=== PATIENT | female | born 1975 | race Caucasian/White ===

== ENCOUNTER 2017-06-02 18:12 | Inpatient (IN) | payer OTHER, MEDICARE ==
[~2017-06-02] VITALS: Ht 177.8 cm; Wt 141.9 kg
[2017-06-02 18:15] VITALS: BP 148/92; PULSE 94; RESP 24; TEMP 98.8; O2SAT 93
[2017-06-02] MEDS: RESP: ALBUTEROL 2.5 MG/IPRATROPIUM 0.5 MG NEB (SCH) INH ×2 (18:42→18:43)
--- NOTE | 2017-06-02 18:44 | PD ---
HPI Chief Complaint: Respiratory Symptoms Time Seen by Provider: 18:30 Travel History International Travel<30 days: No Contact w/Intl Traveler<30days: No Traveled to known affect area: No History of Present Illness HPI Patient is a 41-year-old female with history of COPD who presents to emergency room with complaints of COPD exacerbation. Reports that she was sitting at home with a family member who is a smoker, reports that all of a sudden she felt increasingly short of breath. Patient reports that she put on 2 L nasal cannula oxygen she has a when needed, reports that this did not help with her symptoms. When EMS arrived on scene, patient was hypoxic with a pulse of 79% on 2 L nasal cannula. Patient was not moving any air at that time, she was given 125 mg of Solu-Medrol as well as 3 nebulizer treatments with minimal relief of symptoms. Patient reports that prior to this, she felt well, had no fever or chills or cough or congestion. She does follow-up with a accounts payables clerk , Dr. Landrum. Reports no chest pain at this time, denies any sick contacts. PFSH Past Medical History Asthma: Yes COPD: Yes Diabetes: Yes Hypertension: Yes ?: Not LMP: may 15 Past Surgical History Surgical History: Unable to Obtain Social History Alcohol Use: No Tobacco Use: No Substance Use: No Allergies-Medications (Allergen,Severity, Reaction): Coded Allergies: Penicillins (Verified Allergy, Severe, 06/02/17) droperidol (Verified Allergy, Severe, Somnolence, 06/02/17) hydrocodone (Verified Allergy, Intermediate, Itching, 06/02/17) Reported Meds & Prescriptions Reported Meds & Active Scripts Active Reported Triamterene-Hydrochlorothiazide 37.5-25 Mg Cap 1 Cap PO DAILY Theophylline ER 12 HR (Theophylline) 300 Mg Tab 300 Mg PO HS Theophylline ER 12 HR (Theophylline) 300 Mg Tab 600 Mg PO DAILY Finasteride 5 Mg Tab 5 Mg PO DAILY Do not crush. Omeprazole 40 Mg Cap 40 Mg PO DAILY Xanax (Alprazolam) 1 Mg Tab 1 Mg PO Q8H PRN Oxycontin (Oxycodone HCl) 10 Mg Tab 10 Mg PO Q8HR Flexeril (Cyclobenzaprine HCl) 7.5 Mg Tab 7.5 Mg PO TID PRN Flexeril (Cyclobenzaprine HCl) 7.5 Mg Tab 7.5 Mg PO TID Cymbalta DR (Duloxetine HCl) 60 Mg Capdr 60 Mg PO BID Bupropion HCl 75 Mg Tab 75 Mg PO BID Carvedilol 6.25 Mg Tab 6.25 Mg PO BID Losartan (Losartan Potassium) 25 Mg Tab 25 Mg PO DAILY Furosemide 20 Mg Tab 20 Mg PO BID Review of Systems General / Constitutional: No: Fever Eyes: No: Visual changes HENT: No: Headaches Cardiovascular: No: Chest Pain or Discomfort, Palpitations, Irregular Rhythm Respiratory: Positive: Shortness of Breath, Wheezing, No: Cough Gastrointestinal: No: Abdominal Pain Genitourinary: No: Dysuria Musculoskeletal: No: Pain Skin: No Rash Neurologic: No: Weakness Psychiatric: No: Depression Endocrine: No: Polydipsia Hematologic/Lymphatic: No: Easy Bruising Physical Exam Narrative GENERAL: Moderate distress SKIN: Focused skin assessment warm/dry. HEAD: Atraumatic. Normocephalic. EYES: Pupils equal and round. No scleral icterus. No injection or drainage. ENT: No nasal bleeding or discharge. Mucous membranes pink and moist. NECK: Trachea midline. No JVD. CARDIOVASCULAR: Regular rate and rhythm. No murmur appreciated. RESPIRATORY: Positive accessory muscle use. Patient with diffuse wheezing on exam GASTROINTESTINAL: Abdomen soft, non-tender, nondistended. Hepatic and splenic margins not palpable. MUSCULOSKELETAL: No obvious deformities. No clubbing. No cyanosis. No edema. NEUROLOGICAL: Awake and alert. No obvious cranial nerve deficits. Motor grossly within normal limits. Normal speech. PSYCHIATRIC: anxious mood and affect; insight and judgment normal. Data Data Last Documented VS Vital Signs Date Time Temp Pulse Resp B/P (MAP) Pulse Ox O2 Delivery O2 Flow Rate FiO2 06/02/17 18:15 98.8 94 24 148/92 (110) 93 Orders Orders Complete Blood Count With Diff (06/02/17 18:30) Comprehensive Metabolic Panel (06/02/17 18:30) B-Type Natriuretic Peptide (06/02/17 18:30) Act Partial Throm Time (Ptt) (06/02/17 18:30) Prothrombin Time / Inr (Pt) (06/02/17 18:30) Magnesium (Mg) (06/02/17 18:30) Arterial Blood Gas (Abg) (06/02/17 18:30) Blood Culture (06/02/17 18:30) Iv Access Insert/Monitor (06/02/17 18:30) Electrocardiogram (06/02/17 18:30) Ecg Monitoring (06/02/17 18:30) Oximetry (06/02/17 18:30) Oxygen Administration (06/02/17 18:30) Chest, Single Ap (06/02/17 18:30) Ed Urine Pregnancytest Poc (06/02/17 18:30) Magnesium Sulfate 1 Gm Premix (Magnesium (06/02/17 18:45) Albuterol-Ipratropium Neb (Duoneb Neb) (06/02/17 18:45) Influenzae A/B Antigen (06/02/17 18:42) Ketorolac Inj (Toradol Inj) (06/02/17 19:00) Sodium Chlor 0.9% 1000 Ml Inj (Ns 1000 M (06/02/17 19:00) Levofloxacin 750 Mg Premix Inj (Levaquin (06/02/17 19:15) Labs Laboratory Tests Test 06/02/17 18:30 06/02/17 18:46 06/02/17 18:50 White Blood Count 9.0 TH/MM3 Red Blood Count 4.95 MIL/MM3 Hemoglobin 12.8 GM/DL Hematocrit 38.8 % Mean Corpuscular Volume 78.4 FL Mean Corpuscular Hemoglobin 25.8 PG Mean Corpuscular Hemoglobin Concent 32.9 % Red Cell Distribution Width 19.3 % Platelet Count 242 TH/MM3 Mean Platelet Volume 9.7 FL Neutrophils (%) (Auto) 65.2 % Lymphocytes (%) (Auto) 24.4 % Monocytes (%) (Auto) 8.6 % Eosinophils (%) (Auto) 1.0 % Basophils (%) (Auto) 0.8 % Neutrophils # (Auto) 5.8 TH/MM3 Lymphocytes # (Auto) 2.2 TH/MM3 Monocytes # (Auto) 0.8 TH/MM3 Eosinophils # (Auto) 0.1 TH/MM3 Basophils # (Auto) 0.1 TH/MM3 CBC Comment DIFF FINAL Differential Comment Prothrombin Time 10.2 SEC Prothromb Time International Ratio 1.0 RATIO Activated Partial Thromboplast Time 25.2 SEC Blood Urea Nitrogen 11 MG/DL Creatinine 0.58 MG/DL Random Glucose 107 MG/DL Total Protein 7.5 GM/DL Albumin 3.4 GM/DL Calcium Level 8.8 MG/DL Magnesium Level 1.9 MG/DL Alkaline Phosphatase 121 U/L Aspartate Amino Transf (AST/SGOT) 18 U/L Alanine Aminotransferase (ALT/SGPT) 17 U/L Total Bilirubin 0.4 MG/DL Sodium Level 137 MEQ/L Potassium Level 3.6 MEQ/L Chloride Level 99 MEQ/L Carbon Dioxide Level 32.8 MEQ/L Anion Gap 5 MEQ/L Estimat Glomerular Filtration Rate 113 ML/MIN B-Type Natriuretic Peptide 28 PG/ML Blood Gas Puncture Site RT RADIAL Blood Gas Patient Temperature 98.6 Blood Gas HCO3 31 mmol/L Blood Gas Base Excess 6.5 mmol/L Blood Gas Oxygen Saturation 86 % Arterial Blood pH 7.40 Arterial Blood Partial Pressure CO2 52 mmHG Arterial Blood Partial Pressure O2 60 mmHG Arterial Blood Oxygen Content 16.2 Vol % Arterial Blood Carboxyhemoglobin 0.1 % Arterial Blood Methemoglobin 0.7 % Blood Gas Hemoglobin 13.4 G/DL Oxygen Delivery Device ROOM AIR Blood Gas Inspired Oxygen 21 % [facility] Medical Decision Making Medical Screen Exam Complete: Yes Emergency Medical Condition: Yes Medical Record Reviewed: Yes Interpretation(s) EKG at 1845: NSR at 96bpm, qt/qtc: 370/424, no acute st or t wave changes Vital Signs Date Time Temp Pulse Resp B/P (MAP) Pulse Ox O2 Delivery O2 Flow Rate FiO2 06/02/17 18:15 98.8 94 24 148/92 (110) 93 Differential Diagnosis COPD exacerbation, pneumonia, pneumothorax Narrative Course 41-year-old female who presents to emergency room with complaints of COPD exacerbation, COPD exacerbation began 30 minutes prior to arrival to the emergency room. Patient was given 125 mg of IV Solu-Medrol as well as 3 nebulizer treatments by EMS. Patient continues to have tight breath sounds on evaluation. Patient was initially hypoxic upon initial evaluation by EMS - she had a pulse ox of 79% on 2 L. patient currently with a pulse ox of 93% on room air, patient was placed on oxygen upon arrival to emergency room. Vital Signs Date Time Temp Pulse Resp B/P (MAP) Pulse Ox O2 Delivery O2 Flow Rate FiO2 06/02/17 18:15 98.8 94 24 148/92 (110) 93 During the course of the patients emergency department visit, the patients history, examination, and differential diagnosis were reviewed with the patient. The patient was placed on a job cost estimator with oximetry and frequent blood pressure monitoring. The patient had an IV access obtained and blood work sent for analysis. The patient was initially provided IV fluids, IV magnesium The patients laboratory studies were reviewed and remarkable for CBC & BMP Diagram 06/02/17 18:30 06/02/17 18:46 Total Protein 7.5, Albumin 3.4, Calcium Level 8.8, Magnesium Level 1.9, Alkaline Phosphatase 121 H, Aspartate Amino Transf (AST/SGOT) 18, Alanine Aminotransferase (ALT/SGPT) 17, Total Bilirubin 0.4 Radiology studies were reviewed and remarkable for Last Impressions Chest X-Ray 06/02/17 1830 Signed Impressions: Service Date/Time: Wednesday, June 02, 2017 18:36 - CONCLUSION: 1. No acute cardiopulmonary disease. Sidney Zarate MD Microbiology Date/Time Source Procedure Growth Status 06/02/17 18:38 Blood Peripheral Aerobic Blood Culture Pending Received 06/02/17 18:38 Blood Peripheral Anaerobic Blood Culture Pending Received 06/02/17 18:30 Blood Peripheral Aerobic Blood Culture Pending Received 06/02/17 18:30 Blood Peripheral Anaerobic Blood Culture Pending Received 06/02/17 19:08 Nasal Aspirate Influenza Types A,B Antigen (CHETNA) - Final NEGATIVE FOR FLU A AND B ANTIGEN.... Complete Patient reevaluated, patient moving air much better after magnesium and nebulizer treatments administered. Patient with the PaO2 of 60% on room air, oxygen saturation is 86%, patient is hypoxic. Plan to admit to the hospital for IV steroids as well as neb treatments. Patient has been pancultured, she has been given dose of Levaquin for COPD exacerbation. Critical Care Narrative Aggregate critical care time was 30 minutes. Time to perform other separately billable procedures was not included in the critical care time. My time did not include minutes spent treating any other patients simultaneously or on activities that did not directly contribute to the patient's treatment. The services I provided to this patient were to treat and/or prevent clinically significant deterioration that could result in: , decompensation, deterioration I provided critical care services requiring my management, as noted below: Chart data review, documentation time, medication orders and management, vital sign assessments/reviewing monitor data, ordering and reviewing lab tests, ordering and interpreting/reviewing x-rays and diagnostic studies, care of the patient and discussion of the patient with the admitting physicians. Diagnosis Primary Impression: Hypoxia Additional Impression: COPD with exacerbation Admitting Information Admitting Physician Requests: Admit Bekah Verdugo DO Jun 02, 2017 18:44
[2017-06-02 18:53] LABS: AUTOMATED NEUTROPHIL # 5.8 TH/MM3 (1.8-7.7); BASOPHIL # 0.1 TH/MM3 (0-0.2); BASOPHIL % 0.8 % (0.0-2.0); EOSINOPHIL # 0.1 TH/MM3 (0-0.4); HEMATOCRIT 38.8 % (35.0-46.0); HEMOGLOBIN 12.8 GM/DL (11.6-15.3); LYMPH % 24.4 % (9.0-44.0); LYMPHOCYTE # 2.2 TH/MM3 (1.0-4.8); MEAN CELL VOLUME 78.4 FL (80.0-100.0); MEAN CORPUSCULAR HEMOGLOBIN 25.8 PG (27.0-34.0); MEAN CORPUSCULAR HGB CONC 32.9 % (32.0-36.0); MEAN PLATELET VOLUME 9.7 FL (7.0-11.0); MONO % 8.6 % (0.0-8.0); MONOCYTE # 0.8 TH/MM3 (0-0.9); NEUT % 65.2 % (16.0-70.0); PLATELET COUNT 242 TH/MM3 (150-450); RED BLOOD COUNT 4.95 MIL/MM3 (4.00-5.30); RED CELL DISTRIBUTION WIDTH 19.3 % (11.6-17.2)
[2017-06-02] MEDS ORDERED: SODIUM CHLOR 0.9% 1000 ML INJ 1,000 ML IV ONE (19:00)
[2017-06-02] MEDS ORDERED: KETOROLAC TROMETHAMINE 30 MG/ML (IVP) VIAL IV PUSH ONE (19:00)
--- NOTE | 2017-06-02 19:02 | RADRPT ---
EXAM DATE/TIME: 06/02/2017 18:36 [facility] COMPARISON: No previous studies available for comparison. INDICATIONS : Short of breath. MEDICAL HISTORY : Asthma. SURGICAL HISTORY : None. ENCOUNTER: Initial ACUITY: 1 day PAIN SCORE: 4/10 LOCATION: Bilateral chest FINDINGS: A single view of the chest demonstrates the lungs to be symmetrically aerated without evidence of mas s, infiltrate or effusion. The cardiomediastinal contours are unremarkable. Osseous structures are intact. CONCLUSION: 1. No acute cardiopulmonary disease. Sidney Zarate MD on June 02, 2017 at 19:01 Board Certified Radiologist. This report was verified electronically.
[2017-06-02 19:06] LABS: CHLORIDE 99 MEQ/L (98-107); SODIUM (NA) 137 MEQ/L (136-145)
[2017-06-02] MEDS ORDERED: OMEP40CA2 PO (19:08)
[2017-06-02] MEDS ORDERED: FURO20TA PO (19:08)
[2017-06-02] MEDS ORDERED: BUPR75TA PO (19:08)
[2017-06-02] MEDS ORDERED: CYCL7.5T33 PO (19:08)
[2017-06-02] MEDS ORDERED: XANA1TAB2 PO (19:08)
[2017-06-02] MEDS ORDERED: CYMB60CA PO (19:08)
[2017-06-02] MEDS ORDERED: THEO300T12 PO ×2 (19:08)
[2017-06-02] MEDS ORDERED: LOSA25TA PO (19:08)
[2017-06-02] MEDS ORDERED: FINA5TAB2 PO (19:08)
[2017-06-02] MEDS ORDERED: OXYC-103 PO (19:08)
[2017-06-02] MEDS ORDERED: CARV6.252 PO (19:08)
[2017-06-02 19:09] LABS: CALCIUM 8.8 MG/DL (8.5-10.1)
[2017-06-02 19:10] LABS: ALBUMIN 3.4 GM/DL (3.4-5.0); BICARBONATE 32.8 MEQ/L (21.0-32.0); BLOOD UREA NITROGEN 11 MG/DL (7-18); GLUCOSE,RANDOM 107 MG/DL (74-106); MAGNESIUM 1.9 MG/DL (1.5-2.5)
[2017-06-02 19:11] LABS: PROTHROMBIN TIME - PATIENT 10.2 SEC (9.8-11.6)
[2017-06-02] MEDS ORDERED: TRIA37.53 PO (19:11)
[2017-06-02 19:13] LABS: ALT (GPT) 17 U/L (10-53); AST (GOT) 18 U/L (15-37); CREATININE 0.58 MG/DL (0.50-1.00); GLOMERULAR FILTRATION RATE 113 ML/MIN (>89)
[2017-06-02 19:14] LABS: TOTAL BILIRUBIN ADULT 0.4 MG/DL (0.2-1.0); TOTAL PROTEIN 7.5 GM/DL (6.4-8.2)
[2017-06-02] MEDS ORDERED: LEVOFLOXACIN 750 MG PREMIX INJ 150 ML IV ONE (19:15)
[2017-06-02 19:16] LABS: ALKALINE PHOSPHATASE 121 U/L (45-117)
[2017-06-02] MEDS: MAGNESIUM SULFATE 1 GM PREMIX 100 ML IV SCH ×2 (19:18→22:37)
[2017-06-02] MEDS ORDERED: BISACODYL 10 MG SUPP RECTAL PRN (19:45)
[2017-06-02] MEDS ORDERED: DEXTROSE 50% IN WATER 50 ML VIAL(D50) IV PUSH PRN (19:45)
[2017-06-02] MEDS ORDERED: RESP: ALBUTEROL 2.5 MG/IPRATROPIUM 0.5 MG NEB (PRN) NEB (19:45)
[2017-06-02] MEDS ORDERED: NALOXONE HCL 0.4 MG/ML AMP IV PUSH PRN (19:45)
[2017-06-02] MEDS ORDERED: GLUCAGON 1 MG/ML VIAL OTHER PRN (19:45)
[2017-06-02] MEDS ORDERED: SENNOSIDES 8.6 MG TAB PO PRN (19:45)
[2017-06-02] MEDS ORDERED: SODIUM CHLORIDE 0.9% FLUSH 10 ML FLUSH IV FLUSH PRN (19:45)
[2017-06-02] MEDS ORDERED: ONDANSETRON HCL 4 MG/2 ML VIAL IVP PRN (19:45)
[2017-06-02 20:00] VITALS: BP 134/75; PULSE 87; RESP 16; TEMP 98.1; O2SAT 93
[2017-06-02 20:07] VITALS: O2SAT 93
[2017-06-02 20:11] VITALS: BP 146/89; PULSE 88; RESP 16; O2SAT 93
[2017-06-02] MEDS ORDERED: IPRASOL INH (20:31)
[2017-06-02] MEDS ORDERED: SPIRCAP INH (20:31)
[2017-06-02] MEDS ORDERED: VENTAER INH (20:31)
[2017-06-02 20:46] VITALS: BP 134/74; PULSE 86; RESP 16; TEMP 97.7; O2SAT 93
[2017-06-02] MEDS: INSULIN ASPART SUPPLEMENTAL SCALE SQ SCH (21:00)
[2017-06-02] MEDS: FUROSEMIDE 20 MG TAB PO SCH (21:00)
[2017-06-02 21:32] VITALS: O2SAT 94
[2017-06-02] MEDS: RESP: ALBUTEROL 2.5 MG/IPRATROPIUM 0.5 MG NEB (SCH) NEB (21:32)
[2017-06-02] MEDS: ENOXAPARIN SODIUM 40 MG/0.4 ML SYRINGE SQ SCH (22:23)
[2017-06-02] MEDS: DULoxetine HCl DR 60 MG CAP PO SCH (22:25)
[2017-06-02] MEDS: SODIUM CHLORIDE 0.9% FLUSH 10 ML FLUSH IV FLUSH SCH (22:25)
[2017-06-02] MEDS: methylPREDNISolone SOD SUCC 40 MG/1 ML VIAL IV PUSH SCH (22:25)
[2017-06-02] MEDS: CARVEDILOL 6.25 MG TAB PO SCH (22:25)
[2017-06-02] MEDS: buPROPion HCL 75 MG TAB PO SCH (22:51)
[2017-06-02] MEDS: ALPRAZolam 1 MG TAB PO PRN (22:51)
[2017-06-02] MEDS: THEOPHYLLINE ER 12 HR 300 MG TABCR PO SCH (22:51)
[2017-06-03] VITALS (7 sets, daily range): BP systolic 114–159; BP diastolic 59–99; PULSE 78–92; RESP 16–18; TEMP 96.5–97.8; O2SAT 93–98
[2017-06-03] MEDS: RESP: ALBUTEROL 2.5 MG/IPRATROPIUM 0.5 MG NEB (SCH) NEB ×2 (03:28→10:00)
[2017-06-03] MEDS: methylPREDNISolone SOD SUCC 40 MG/1 ML VIAL IV PUSH SCH ×3 (05:35→20:23)
[2017-06-03] MEDS: ALPRAZolam 1 MG TAB PO PRN ×2 (06:27→20:47)
[2017-06-03 06:40] LABS: AUTOMATED NEUTROPHIL # 8.2 TH/MM3 (1.8-7.7); BASOPHIL % 0.2 % (0.0-2.0); EOSINOPHIL % 0.1 % (0.0-4.0); HEMOGLOBIN 12.1 GM/DL (11.6-15.3); LYMPH % 8.3 % (9.0-44.0); LYMPHOCYTE # 0.7 TH/MM3 (1.0-4.8); MEAN CELL VOLUME 80.1 FL (80.0-100.0); MEAN CORPUSCULAR HEMOGLOBIN 25.6 PG (27.0-34.0); MEAN CORPUSCULAR HGB CONC 31.9 % (32.0-36.0); MEAN PLATELET VOLUME 10.3 FL (7.0-11.0); MONO % 0.7 % (0.0-8.0); MONOCYTE # 0.1 TH/MM3 (0-0.9); NEUT % 90.7 % (16.0-70.0); PLATELET COUNT 227 TH/MM3 (150-450); RED BLOOD COUNT 4.74 MIL/MM3 (4.00-5.30)
[2017-06-03 06:46] LABS: CALCIUM 8.6 MG/DL (8.5-10.1)
[2017-06-03 06:47] LABS: BICARBONATE 28.6 MEQ/L (21.0-32.0)
[2017-06-03 06:50] LABS: CREATININE 0.73 MG/DL (0.50-1.00)
[2017-06-03] MEDS: SODIUM CHLORIDE 0.9% FLUSH 10 ML FLUSH IV FLUSH SCH ×2 (08:17→20:24)
[2017-06-03] MEDS: INSULIN ASPART SUPPLEMENTAL SCALE SQ SCH ×4 (08:17→20:50)
[2017-06-03] MEDS: PANTOPRAZOLE SOD 40 MG DELAYED RELEASE TAB PO SCH (08:18)
[2017-06-03] MEDS: LOSARTAN 25 MG TAB PO SCH (08:18)
[2017-06-03] MEDS: CARVEDILOL 6.25 MG TAB PO SCH ×2 (08:18→20:24)
[2017-06-03] MEDS: FUROSEMIDE 20 MG TAB PO SCH ×3 (08:18→20:27)
[2017-06-03] MEDS: DULoxetine HCl DR 60 MG CAP PO SCH ×2 (08:18→20:24)
[2017-06-03] MEDS: TRIAMTERENE/HCTZ 37.5 MG/25 MG CAP PO SCH (08:18)
[2017-06-03] MEDS ORDERED: THEOPHYLLINE ER 12 HR 300 MG TABCR PO SCH (09:00)
[2017-06-03] MEDS: buPROPion HCL 75 MG TAB PO SCH ×2 (09:16→20:24)
[2017-06-03] MEDS: THEOPHYLLINE ER 12 HR 300 MG TABCR PO SCH ×2 (09:16→20:24)
[2017-06-03] MEDS: CYCLOBENZAPRINE HCL 10 MG TAB PO PRN (11:09)
--- NOTE | 2017-06-03 11:45 | HHI.HP ---
[facility] Service [facility] Primary Care Physician Unknown Admission Diagnosis Hypoxia with COPD exacerbation Diagnoses: (1) COPD with exacerbation Diagnosis: Principal Chief Complaint: Worsening shortness of breath. Travel History International Travel<30 Days: No Contact w/Intl Traveler <30 Da: No Traveled to Known Affected Are: No History of Present Illness Written by Renetta Cherry, acting as scribe for Dr. Ramos on 06/03/17 at 11:36. Ms. Almazan is a 41-year-old female patient with a known medical history of COPD , HTN, DM and asthma who presented to the ED with worsening shortness of breath. Patient states that she ate some romansh food and fried chicken wings with old grease and roughly 1.5 hours after eating them she started to experience worsening shortness of breath. Denies any tongue swelling, rash or face swelling. Does complain of worsening dyspnea despite use of home nebulizer and rescue inhaler. Patient does suffer from chronic COPD and follows with a house calls nurse practitioner in [place]. She uses a CPAP at night and has home O2, 2LNC as needed for increased activity. She attempted to use her home O2 with little relief of dyspnea. Denies any cough. Denies any recent illness including any fever, chills, headache, abdominal pain, nausea, vomiting, diarrhea or dysuria. At the time of assessment, patient has improved significantly. Denies any chest pain. Continued on 2 LNC. Does admit to some lightheadedness. Uses CPAP machine at night. Denies any fever or chills. No current wheezing noted. Review of Systems Constitutional: DENIES: Fever, Chills Eyes: DENIES: Blurred vision, Diplopia Respiratory: COMPLAINS OF: Shortness of breath, DENIES: Cough Cardiovascular: DENIES: Chest pain Gastrointestinal: DENIES: Abdominal pain, Constipation, Diarrhea, Nausea, Vomiting Psychiatric: DENIES: Anxiety Except as stated in HPI: all other systems reviewed are Neg Past Family Social History Past Medical History COPD Type 2 diabetes mellitus, diet controlled. Hyperlipidemia. Past Surgical History Cholecystectomy Hemorrhoid removal Lap band, has been removed Partial gastrectomy Routine colonoscopy, history of polyps. Reported Medications Active Reported Duoneb (Ipratropium-Albuterol Neb) 0.5-2.5 Mg/3 Ml Neb 1 Nebule INH Q6HR NEB Ventolin Hfa 18 GM Inh (Albuterol Sulfate) 90 Mcg/Act Aer 2 Puff INH Q6H PRN Spiriva Handihaler (Tiotropium Inh) 18 Mcg Cap 18 Mcg INH DAILY 1 capsule = 18 mcg Triamterene-Hydrochlorothiazide 37.5-25 Mg Cap 1 Cap PO DAILY Theophylline ER 12 HR (Theophylline) 300 Mg Tab 300 Mg PO HS Theophylline ER 12 HR (Theophylline) 300 Mg Tab 600 Mg PO DAILY Finasteride 5 Mg Tab 5 Mg PO DAILY Do not crush. Omeprazole 40 Mg Cap 40 Mg PO DAILY Xanax (Alprazolam) 1 Mg Tab 1 Mg PO Q8H PRN Oxycontin (Oxycodone HCl) 10 Mg Tab 10 Mg PO Q8HR Flexeril (Cyclobenzaprine HCl) 7.5 Mg Tab 7.5 Mg PO TID PRN Flexeril (Cyclobenzaprine HCl) 7.5 Mg Tab 7.5 Mg PO TID Cymbalta DR (Duloxetine HCl) 60 Mg Capdr 60 Mg PO BID Bupropion HCl 75 Mg Tab 75 Mg PO BID Carvedilol 6.25 Mg Tab 6.25 Mg PO BID Losartan (Losartan Potassium) 25 Mg Tab 25 Mg PO DAILY Furosemide 20 Mg Tab 20 Mg PO BID Allergies: Coded Allergies: Penicillins (Verified Allergy, Severe, 06/02/17) PT DENIES ALLERGY, STATES MOM THINKS HE MAY HAVE HAD A CHILDHOOD ALLERGY BUT ISNT SURE 06/02/17 droperidol (Verified Allergy, Severe, Somnolence, 06/02/17) hydrocodone (Verified Allergy, Intermediate, Itching, 06/02/17) Active Ordered Medications Current Medications Medications (Trade) Dose Ordered Sig/[place] Route Start Time Stop Time Status Last Admin (NS Flush) 2 ml UNSCH PRN IV FLUSH 06/02/17 19:45 (NS Flush) 2 ml BID IV FLUSH 06/02/17 21:00 06/03/17 08:17 (Tylenol) 650 mg Q4H PRN PO 06/02/17 19:45 (Zofran Inj) 4 mg Q6H PRN IVP 06/02/17 19:45 (Lovenox Inj) 40 mg Q24H SQ 06/02/17 21:00 06/02/17 22:23 (Narcan Inj) 0.4 mg UNSCH PRN IV PUSH 06/02/17 19:45 (Senokot) 17.2 mg Q12H PRN PO 06/02/17 19:45 (Dulcolax Supp) 10 mg DAILY PRN RECTAL 06/02/17 19:45 (D50w (Vial) Inj) 50 ml UNSCH PRN IV PUSH 06/02/17 19:45 (Glucagon Inj) 1 mg UNSCH PRN OTHER 06/02/17 19:45 (NovoLOG SUPPLEMENTAL SCALE) 1 ACHS SLIDING SCALE SQ 06/02/17 21:00 06/03/17 08:17 (Duoneb Neb) 1 ampule Q2HR NEB PRN NEB 06/02/17 19:45 (Duoneb Neb) 1 ampule Q6HR NEB NEB 06/02/17 22:00 06/03/17 10:00 (Xanax) 1 mg Q8H PRN PO 06/02/17 20:00 06/03/17 06:27 (Wellbutrin) 75 mg BID PO 06/02/17 21:00 06/03/17 09:16 (Coreg) 6.25 mg BID PO 06/02/17 21:00 06/03/17 08:18 (Cymbalta Dr) 60 mg BID PO 06/02/17 21:00 06/03/17 08:18 (Lasix) 20 mg BID PO 06/02/17 21:00 06/03/17 08:18 (Cozaar) 25 mg DAILY PO 06/03/17 09:00 06/03/17 08:18 (Theochron) 300 mg HS PO 06/02/17 21:00 06/02/17 22:51 (Theochron) 600 mg DAILY PO 06/03/17 09:00 06/03/17 09:16 (Dyazide 37.5-25 Mg) 1 cap DAILY PO 06/03/17 09:00 06/03/17 08:18 (Flexeril) 7.5 mg TID PRN PO 06/02/17 20:15 06/03/17 11:09 (Protonix) 40 mg DAILY PO 06/03/17 09:00 06/03/17 08:18 (Roxicodone) 10 mg Q8H PRN PO 06/02/17 20:00 06/03/17 06:27 (SoluMEDROL INJ) 40 mg Q8HR IV PUSH 06/03/17 14:00 Family History Maternal medical history significant for DM. Social History Denies any tobacco use. Does admit to drinking socially occasionally. Denies any illicit drug use. Physical Exam Vital Signs Vital Signs Date Time Temp Pulse Resp B/P (MAP) Pulse Ox O2 Delivery O2 Flow Rate FiO2 06/03/17 10:04 95 Nasal Cannula 3.00 06/03/17 08:00 96.5 89 18 159/98 (118) 93 06/03/17 00:00 97.8 92 18 114/59 (77) 94 06/02/17 21:32 94 Nasal Cannula 3.00 06/02/17 21:01 16 83 93 Nasal Cannula 2.00 06/02/17 20:46 97.7 86 16 134/74 (94) 93 Nasal Cannula 2.00 06/02/17 20:11 88 16 146/89 (108) 93 Nasal Cannula 2.00 06/02/17 20:07 93 Nasal Cannula 2.00 06/02/17 20:07 93 Nasal Cannula 2.00 06/02/17 20:00 98.1 87 16 134/75 (94) 93 06/02/17 18:15 98.8 94 24 148/92 (110) 93 Physical Exam GENERAL: This is a well-developed, obese female patient, in no apparent distress. SKIN: No rashes, ecchymoses or lesions. Warm and dry. HEAD: Atraumatic. Normocephalic. EYES: Pupils equal round and reactive. Extraocular motions intact. No scleral icterus. No injection or drainage. ENT: Nose without bleeding, purulent drainage or septal hematoma. Throat without erythema, tonsillar hypertrophy or exudate. Uvula midline. Airway patent. NECK: Trachea midline. No JVD. Supple. CARDIOVASCULAR: Regular rate and rhythm without murmurs, gallops, or rubs. RESPIRATORY: Clear to auscultation. Breath sounds equal bilaterally. No wheezes , rales, or rhonchi. GASTROINTESTINAL: Abdomen soft, non-tender, nondistended. No guarding. MUSCULOSKELETAL: Extremities without clubbing, cyanosis, or edema. No joint tenderness, effusion, or edema noted. NEUROLOGICAL: Awake and alert. Cranial nerves II through XII intact. Motor and sensory grossly within normal limits. Five out of 5 muscle strength in all muscle groups. Normal speech. Laboratory Laboratory Tests Test 06/02/17 18:30 06/02/17 18:46 06/02/17 18:50 06/02/17 21:36 White Blood Count 9.0 Red Blood Count 4.95 Hemoglobin 12.8 Hematocrit 38.8 Mean Corpuscular Volume 78.4 Mean Corpuscular Hemoglobin 25.8 Mean Corpuscular Hemoglobin Concent 32.9 Red Cell Distribution Width 19.3 Platelet Count 242 Mean Platelet Volume 9.7 Neutrophils (%) (Auto) 65.2 Lymphocytes (%) (Auto) 24.4 Monocytes (%) (Auto) 8.6 Eosinophils (%) (Auto) 1.0 Basophils (%) (Auto) 0.8 Neutrophils # (Auto) 5.8 Lymphocytes # (Auto) 2.2 Monocytes # (Auto) 0.8 Eosinophils # (Auto) 0.1 Basophils # (Auto) 0.1 CBC Comment DIFF FINAL Differential Comment Prothrombin Time 10.2 Prothromb Time International Ratio 1.0 Activated Partial Thromboplast Time 25.2 Blood Urea Nitrogen 11 Creatinine 0.58 Random Glucose 107 Total Protein 7.5 Albumin 3.4 Calcium Level 8.8 Magnesium Level 1.9 Alkaline Phosphatase 121 Aspartate Amino Transf (AST/SGOT) 18 Alanine Aminotransferase (ALT/SGPT) 17 Total Bilirubin 0.4 Sodium Level 137 Potassium Level 3.6 Chloride Level 99 Carbon Dioxide Level 32.8 Anion Gap 5 Estimat Glomerular Filtration Rate 113 B-Type Natriuretic Peptide 28 Blood Gas Puncture Site RT RADIAL RT RADIAL Blood Gas Patient Temperature 98.6 37.0 Blood Gas HCO3 31 30 Blood Gas Base Excess 6.5 5.7 Blood Gas Oxygen Saturation 86 90 Arterial Blood pH 7.40 7.41 Arterial Blood Partial Pressure CO2 52 49 Arterial Blood Partial Pressure O2 60 68 Arterial Blood Oxygen Content 16.2 16.3 Arterial Blood Carboxyhemoglobin 0.1 0.0 Arterial Blood Methemoglobin 0.7 0.9 Blood Gas Hemoglobin 13.4 12.9 Oxygen Delivery Device ROOM AIR NASAL CANNULA Blood Gas Inspired Oxygen 21 Blood Gas Liter Flow 3 Test 06/03/17 05:45 White Blood Count 9.0 Red Blood Count 4.74 Hemoglobin 12.1 Hematocrit 38.0 Mean Corpuscular Volume 80.1 Mean Corpuscular Hemoglobin 25.6 Mean Corpuscular Hemoglobin Concent 31.9 Red Cell Distribution Width 19.0 Platelet Count 227 Mean Platelet Volume 10.3 Neutrophils (%) (Auto) 90.7 Lymphocytes (%) (Auto) 8.3 Monocytes (%) (Auto) 0.7 Eosinophils (%) (Auto) 0.1 Basophils (%) (Auto) 0.2 Neutrophils # (Auto) 8.2 Lymphocytes # (Auto) 0.7 Monocytes # (Auto) 0.1 Eosinophils # (Auto) 0.0 Basophils # (Auto) 0.0 CBC Comment DIFF FINAL Differential Comment Blood Urea Nitrogen 19 Creatinine 0.73 Random Glucose 201 Calcium Level 8.6 Sodium Level 136 Potassium Level 3.4 Chloride Level 99 Carbon Dioxide Level 28.6 Anion Gap 8 Estimat Glomerular Filtration Rate 87 Date/Time Source Procedure Growth Status 06/02/17 18:38 Blood Peripheral Aerobic Blood Culture - Preliminary NO GROWTH IN 1 DAY Resulted 06/02/17 18:38 Blood Peripheral Anaerobic Blood Culture - Preliminary NO GROWTH IN 1 DAY Resulted 06/02/17 19:08 Nasal Aspirate Influenza Types A,B Antigen (CHETNA) - Final NEGATIVE FOR FLU A AND B ANTIGEN.... Complete Result Diagram: 06/03/17 0545 06/03/17 0545 Imaging Last Impressions Chest X-Ray 06/02/17 1830 Signed Impressions: Service Date/Time: Friday, June 02, 2017 18:36 - CONCLUSION: 1. No acute cardiopulmonary disease. Sidney Zarate MD Septic Shock Reassessment Septic shock perfusion: reassessment completed Caprini VTE Risk Assessment Caprini VTE Risk Assessment: No/Low Risk (score <= 1) Caprini Risk Assessment Model Point Value = 1 Point Value = 2 Point Value = 3 Point Value = 5 Age 41-60 Minor surgery BMI > 25 kg/m2 Swollen legs Varicose veins or History of unexplained or recurrent spontaneous Oral contraceptives or hormone replacement Sepsis (< 1 month) Serious lung disease, including pneumonia (< 1 month) Abnormal pulmonary function Acute myocardial infarction Congestive heart failure (< 1 month) History of inflammatory bowel disease Medical patient at bed rest Age 61-74 Arthroscopic surgery Major open surgery (> 45 min) Laparoscopic surgery (> 45 min) Malignancy Confined to bed (> 72 hours) Immobilizing plaster cast Central venous access Age >= 75 History of VTE Family history of VTE Factor V Leiden Prothrombin [id number] Lupus anticoagulant Anticardiolipin antibodies Elevated serum homocysteine Heparin-induced thrombocytopenia Other congenital or acquired thrombophilia Stroke (< 1 month) Elective arthroplasty Hip, pelvis, or leg fracture Acute spinal cord injury (< 1 month) Prophylaxis Regimen Total Risk Factor Score Risk Level Prophylaxis Regimen 0-1 Low Early ambulation 2 Moderate Order ONE of the following: *Sequential Compression Device (SCD) *Heparin 5000 units SQ BID 3-4 Higher Order ONE of the following medications: *Heparin 5000 units SQ TID *Enoxaparin/Lovenox 40 mg SQ daily (WT < 150 kg, CrCl > 30 mL/min) *Enoxaparin/Lovenox 30 mg SQ daily (WT < 150 kg, CrCl > 10-29 mL/min) *Enoxaparin/Lovenox 30 mg SQ BID (WT < 150 kg, CrCl > 30 mL/min) AND/OR *Sequential Compression Device (SCD) 5 or more Highest Order ONE of the following medications: *Heparin 5000 units SQ TID (Preferred with Epidurals) *Enoxaparin/Lovenox 40 mg SQ daily (WT < 150 kg, CrCl > 30 mL/min) *Enoxaparin/Lovenox 30 mg SQ daily (WT < 150 kg, CrCl > 10-29 mL/min) *Enoxaparin/Lovenox 30 mg SQ BID (WT < 150 kg, CrCl > 30 mL/min) AND *Sequential Compression Device (SCD) Assessment and Plan Assessment and Plan Ms. Almazan is a 41-year-old female patient with a known medical history of COPD , HTN, DM and asthma who presented to the ED with worsening shortness of breath. Acute on chronic COPD with exacerbation Will continue IV steroids. Duonebs PRN as needed for shortness of breath/ wheezing. Continue home inhalers. Supplemental O2 as needed. Uses 2 L NC as needed at home with increased activity. Type 2 diabetes mellitus, chronic: ACCU checks ACHS, sliding scale insulin, cover as needed. Monitor blood sugar trends. Hypertension, chronic: Continue home medications. BP controlled. Continue to monitor BP trends. Hypokalemia, mild: K 3.4 on presentation. Repletion ordered. Follow BMP in am. Chronic back pain: Continue home Oxycodone PRN per pain scale. GERD/GI Prophylaxis: Protonix. DVT Prophylaxis: SCDs. Lovenox. This note was transcribed by LILIANE Quan . I, Dr. Colette Ramos personally performed the history, physical exam, and medical decision making; and confirmed the accuracy of the information in the transcribed note. Authenticated by Dr. Colette Ramos on 06/03/17 at 11:36. Physician Certification 2 Midnight Certification Type: Admission for Inpatient Services Order for Inpatient Services The services are ordered in accordance with Medicare regulations or non- Medicare payer requirements, as applicable. In the case of services not specified as inpatient-only, they are appropriately provided as inpatient services in accordance with the 2-midnight benchmark. Estimated LOS (days): 2 2 days is the estimated time the patient will need to remain in the hospital, assuming treatment plan goals are met and no additional complications. Post-Hospital Plan: Home Renetta Cherry Jun 03, 2017 11:45 Colette Ramos MD Jun 03, 2017 14:31
[2017-06-03] MEDS: POTASSIUM CHLORIDE 10 MEQ CONTROLLED RELEASE TAB PO ONE ×2 (12:00→12:33)
[2017-06-03] MEDS ORDERED: ALBUTEROL SULFATE 90 MCG/ACT HFA 8 GM INHALER INH PRN (13:15)
[2017-06-03] MEDS ORDERED: POTASSIUM CHLORIDE 25 MEQ EFFERVESCENT TAB PO ONE (14:00)
[2017-06-03] MEDS: TIOTROPIUM BROMIDE 18 MCG INH INH SCH (15:34)
[2017-06-03] MEDS: RESP: ALBUTEROL 2.5 MG/IPRATROPIUM 0.5 MG NEB (SCH) INH ×2 (15:38→21:00)
[2017-06-03] MEDS: ENOXAPARIN SODIUM 40 MG/0.4 ML SYRINGE SQ SCH (20:23)
--- NOTE | 2017-06-03 23:06 | EKG ---
Date Performed: 06/02/2017 Time Performed: 18:45:35 PTAGE: 41 years EKG: Sinus rhythm LOW QRS VOLTAGE IN PRECORDIAL LEADS BORDERLINE ECG NO PREVIOUS TRACING DOCTOR: Ken Saldana Interpretating Date/Time 06/03/2017 23:05:23
[2017-06-04] VITALS: BP 132/90; PULSE 95; RESP 19; TEMP 98.2; O2SAT 94
[2017-06-04] MEDS: CYCLOBENZAPRINE HCL 10 MG TAB PO PRN ×2 (01:03→14:08)
[2017-06-04] MEDS: ACETAMINOPHEN 325 MG TAB PO PRN ×2 (01:04→14:09)
[2017-06-04] MEDS: RESP: ALBUTEROL 2.5 MG/IPRATROPIUM 0.5 MG NEB (SCH) INH ×2 (03:05→09:16)
[2017-06-04] MEDS: methylPREDNISolone SOD SUCC 40 MG/1 ML VIAL IV PUSH SCH ×2 (06:01→12:55)
[2017-06-04 08:00] VITALS: BP 144/88; PULSE 76; RESP 14; TEMP 97.8; O2SAT 95
[2017-06-04 08:11] LABS: AUTOMATED NEUTROPHIL # 13.6 TH/MM3 (1.8-7.7); BASOPHIL % 0.1 % (0.0-2.0); EOSINOPHIL % 0.1 % (0.0-4.0); HEMOGLOBIN 11.6 GM/DL (11.6-15.3); LYMPH % 6.5 % (9.0-44.0); MEAN CORPUSCULAR HEMOGLOBIN 25.3 PG (27.0-34.0); MEAN CORPUSCULAR HGB CONC 32.1 % (32.0-36.0); MEAN PLATELET VOLUME 9.4 FL (7.0-11.0); MONO % 3.5 % (0.0-8.0); MONOCYTE # 0.5 TH/MM3 (0-0.9); NEUT % 89.8 % (16.0-70.0); PLATELET COUNT 231 TH/MM3 (150-450); RED BLOOD COUNT 4.56 MIL/MM3 (4.00-5.30); RED CELL DISTRIBUTION WIDTH 19.3 % (11.6-17.2); WHITE BLOOD COUNT 15.1 TH/MM3 (4.0-11.0)
[2017-06-04 08:25] LABS: CALCIUM 8.7 MG/DL (8.5-10.1)
[2017-06-04 08:26] LABS: BICARBONATE 29.8 MEQ/L (21.0-32.0)
[2017-06-04 08:29] LABS: CREATININE 0.55 MG/DL (0.50-1.00)
--- NOTE | 2017-06-04 09:01 | HHI.PR ---
Subjective Remarks Feels much better today, he is breathing well, she is liters nasal cannula at baseline. No wheezing, shortness of breath, nausea, vomiting, diarrhea or constipation. Wants to go home today. She needs refills on some medications at discharge patient clear. . She did not follow-up with the her pulmonary doctor, possibility appointment Objective Vitals Vital Signs Date Time Temp Pulse Resp B/P (MAP) Pulse Ox O2 Delivery O2 Flow Rate FiO2 06/04/17 00:00 98.2 95 19 132/90 (104) 94 06/03/17 21:00 95 Nasal Cannula 2.00 06/03/17 20:00 96.7 92 18 134/63 (86) 95 06/03/17 16:00 97.0 92 16 159/99 (119) 98 06/03/17 12:00 97.5 78 16 140/84 (102) 94 06/03/17 10:04 95 Nasal Cannula 3.00 I/O 06/03/17 06/03/17 06/03/17 06/04/17 06/04/17 06/04/17 07:00 15:00 23:00 07:00 15:00 23:00 Intake Total 1200 ml Balance 1200 ml Intake Oral 1200 ml # Voids 3 4 2 # Bowel Movements 0 Result Diagram: 06/04/17 0755 06/04/17 0755 Imaging Last Impressions Chest X-Ray 06/02/17 1830 Signed Impressions: Service Date/Time: Friday, June 02, 2017 18:36 - CONCLUSION: 1. No acute cardiopulmonary disease. Sidney Zarate MD Objective Remarks GENERAL: This is a well-developed, obese female patient, in no apparent distress. CARDIOVASCULAR: Regular rate and rhythm without murmurs, gallops, or rubs. RESPIRATORY: Clear to auscultation. Breath sounds equal bilaterally. No wheezes , rales, or rhonchi. GASTROINTESTINAL: Abdomen soft, non-tender, nondistended. No guarding. MUSCULOSKELETAL: Extremities without clubbing, cyanosis, or edema. No joint tenderness, effusion, or edema noted. NEUROLOGICAL: Awake and alert. Cranial nerves II through XII intact. Motor and sensory grossly within normal limits. Five out of 5 muscle strength in all muscle groups. Normal speech. A/P Problem List: (1) COPD with exacerbation ICD Code: J44.1 - Chronic obstructive pulmonary disease with (acute) exacerbation Status: Acute Assessment and Plan Ms. Almazan is a 41-year-old female patient with a known medical history of COPD , HTN, DM and asthma who presented to the ED with worsening shortness of breath. Acute on chronic COPD with exacerbation. Received IV steroids and nebulizers. Duonebs PRN as needed for shortness of breath/wheezing. Taper steroids and nebs as tolerated Continue home inhalers.. Supplemental O2 as needed. Uses 2 L NC as needed at home with increased activity. Type 2 diabetes mellitus, chronic: ACCU checks ACHS, sliding scale insulin, cover as needed. Monitor blood sugar trends. Hypertension, chronic: Continue home medications. BP controlled. Continue to monitor BP trends. Hypokalemia, mild: K 3.4 on presentation. Repletion ordered. Follow BMP in am. Chronic back pain: Continue home Oxycodone PRN per pain scale. GERD/GI Prophylaxis: Protonix. DVT Prophylaxis: SCDs. Lovenox. Discussed with the patient, nurse Patient improved significantly, discharged home in stable condition to follow- up as outpatient with PCP and consultants Colette Ramos MD Jun 04, 2017 09:01
[2017-06-04] MEDS: PANTOPRAZOLE SOD 40 MG DELAYED RELEASE TAB PO SCH (09:07)
[2017-06-04] MEDS: FUROSEMIDE 20 MG TAB PO SCH (09:08)
[2017-06-04] MEDS: CARVEDILOL 6.25 MG TAB PO SCH (09:08)
[2017-06-04] MEDS: buPROPion HCL 75 MG TAB PO SCH (09:08)
[2017-06-04] MEDS: LOSARTAN 25 MG TAB PO SCH (09:08)
[2017-06-04] MEDS: DULoxetine HCl DR 60 MG CAP PO SCH (09:08)
[2017-06-04] MEDS: TRIAMTERENE/HCTZ 37.5 MG/25 MG CAP PO SCH (09:08)
[2017-06-04] MEDS: TIOTROPIUM BROMIDE 18 MCG INH INH SCH (09:09)
[2017-06-04] MEDS: SODIUM CHLORIDE 0.9% FLUSH 10 ML FLUSH IV FLUSH SCH (09:09)
[2017-06-04] MEDS: THEOPHYLLINE ER 12 HR 300 MG TABCR PO SCH (09:09)
[2017-06-04 09:17] VITALS: O2SAT 97
[2017-06-04] MEDS: ALPRAZolam 1 MG TAB PO PRN (09:43)
[2017-06-04] MEDS: INSULIN ASPART SUPPLEMENTAL SCALE SQ SCH ×2 (09:44→12:56)
[2017-06-04] MEDS ORDERED: SYMB80AE INH ×2 (09:50→13:55)
[2017-06-04 11:17] LABS: BILIRUBIN, URINE NEG (NEG); BLOOD, URINE NEG (NEG); GLUCOSE,URINE NEG (NEG); KETONE, URINE NEG (NEG); NITRITE,URINE NEG (NEG); URINE LEUKOCYTE ESTERASE NEG (NEG)
[2017-06-04 11:23] LABS: SQUAMOUS EPITHELIAL CELL URINE 0-5 /hpf (0-5); URINE COLOR YELLOW (YELLW/STRAW)
[2017-06-04 12:00] VITALS: BP 171/94; PULSE 89; RESP 14; TEMP 97.9; O2SAT 95
[2017-06-04] MEDS ORDERED: XANA1TAB2 PO (13:55)
[2017-06-04] MEDS ORDERED: SPIRCAP INH (13:55)
[2017-06-04] MEDS ORDERED: PRED10PA PO (13:55)
[2017-06-04] MEDS ORDERED: IPRASOL INH (13:55)
--- NOTE | 2017-06-04 13:55 | HHI.DS ---
Discharge Summary Admission Date Jun 02, 2017 at 19:44 Discharge Date: Jun 04, 2017 Admitting Diagnosis Hypoxia with COPD exacerbation (1) COPD with exacerbation ICD Code: J44.1 - Chronic obstructive pulmonary disease with (acute) exacerbation Diagnosis: Principal Status: Acute Procedures none Brief History - From Admission Written by Renetta Cherry, acting as scribe for Dr. Ramos on 06/03/17 at 11:36. Ms. Almazan is a 41-year-old female patient with a known medical history of COPD , HTN, DM and asthma who presented to the ED with worsening shortness of breath. Patient states that she ate some bruneian food and fried chicken wings with old grease and roughly 1.5 hours after eating them she started to experience worsening shortness of breath. Denies any tongue swelling, rash or face swelling. Does complain of worsening dyspnea despite use of home nebulizer and rescue inhaler. Patient does suffer from chronic COPD and follows with a tour narrator in [place]. She uses a CPAP at night and has home O2, 2LNC as needed for increased activity. She attempted to use her home O2 with little relief of dyspnea. Denies any cough. Denies any recent illness including any fever, chills, headache, abdominal pain, nausea, vomiting, diarrhea or dysuria. At the time of assessment, patient has improved significantly. Denies any chest pain. Continued on 2 LNC. Does admit to some lightheadedness. Uses CPAP machine at night. Denies any fever or chills. No current wheezing noted. CBC/BMP: 06/04/17 0755 06/04/17 0755 Significant Findings Laboratory Tests Test 06/02/17 18:30 06/02/17 18:46 06/02/17 18:50 06/02/17 21:36 Mean Corpuscular Volume 78.4 FL (80.0-100.0) Mean Corpuscular Hemoglobin 25.8 PG (27.0-34.0) Red Cell Distribution Width 19.3 % (11.6-17.2) Monocytes (%) (Auto) 8.6 % (0.0-8.0) Random Glucose 107 MG/DL (74-106) Alkaline Phosphatase 121 U/L (45-117) Carbon Dioxide Level 32.8 MEQ/L (21.0-32.0) Blood Gas HCO3 31 mmol/L (22-26) 30 mmol/L (22-26) Blood Gas Base Excess 6.5 mmol/L (-2-2) 5.7 mmol/L (-2-2) Blood Gas Oxygen Saturation 86 % (90-100) Arterial Blood Partial Pressure CO2 52 mmHG (38-42) 49 mmHg (38-42) Arterial Blood Partial Pressure O2 60 mmHG (61-120) Test 06/03/17 05:45 06/04/17 07:55 06/04/17 11:10 Mean Corpuscular Hemoglobin 25.6 PG (27.0-34.0) 25.3 PG (27.0-34.0) Mean Corpuscular Hemoglobin Concent 31.9 % (32.0-36.0) Red Cell Distribution Width 19.0 % (11.6-17.2) 19.3 % (11.6-17.2) Neutrophils (%) (Auto) 90.7 % (16.0-70.0) 89.8 % (16.0-70.0) Lymphocytes (%) (Auto) 8.3 % (9.0-44.0) 6.5 % (9.0-44.0) Neutrophils # (Auto) 8.2 TH/MM3 (1.8-7.7) 13.6 TH/MM3 (1.8-7.7) Lymphocytes # (Auto) 0.7 TH/MM3 (1.0-4.8) Blood Urea Nitrogen 19 MG/DL (7-18) Random Glucose 201 MG/DL (74-106) 168 MG/DL (74-106) Potassium Level 3.4 MEQ/L (3.5-5.1) Estimat Glomerular Filtration Rate 87 ML/MIN (>89) White Blood Count 15.1 TH/MM3 (4.0-11.0) Mean Corpuscular Volume 79.0 FL (80.0-100.0) Imaging Last Impressions Chest X-Ray 06/02/17 3450 Signed Impressions: Service Date/Time: Friday, June 02, 2017 18:36 - CONCLUSION: 1. No acute cardiopulmonary disease. Sidney Zarate MD PE at Discharge GENERAL: This is a well-developed, obese female patient, in no apparent distress. CARDIOVASCULAR: Regular rate and rhythm without murmurs, gallops, or rubs. RESPIRATORY: Clear to auscultation. Breath sounds equal bilaterally. No wheezes , rales, or rhonchi. GASTROINTESTINAL: Abdomen soft, non-tender, nondistended. No guarding. MUSCULOSKELETAL: Extremities without clubbing, cyanosis, or edema. No joint tenderness, effusion, or edema noted. NEUROLOGICAL: Awake and alert. Cranial nerves II through XII intact. Motor and sensory grossly within normal limits. Five out of 5 muscle strength in all muscle groups. Normal speech. Hospital Course Ms. Almazan is a 41-year-old female patient with a known medical history of COPD , HTN, DM and asthma who presented to the ED with worsening shortness of breath. Acute on chronic COPD with exacerbation. Received IV steroids and nebulizers. Duonebs PRN as needed for shortness of breath/wheezing. Taper steroids and nebs as tolerated Continue home inhalers.. Supplemental O2 as needed. Uses 2 L NC as needed at home with increased activity. Type 2 diabetes mellitus, chronic: ACCU checks ACHS, sliding scale insulin, cover as needed. Monitor blood sugar trends. Hypertension, chronic: Continue home medications. BP controlled. Continue to monitor BP trends. Hypokalemia, mild: K 3.4 on presentation. Repletion ordered. Follow BMP in am. Chronic back pain: Continue home Oxycodone PRN per pain scale. GERD/GI Prophylaxis: Protonix. DVT Prophylaxis: SCDs. Lovenox. Discussed with the patient, nurse Patient improved significantly, discharged home in stable condition to follow- up as outpatient with PCP and consultants Pt Condition on Discharge: Stable Discharge Disposition: Discharge Home Discharge Time: > 30 minutes Discharge Instructions DIET: Follow Instructions for: As Tolerated, No Restrictions Activities you can perform: Regular-No Restrictions Follow up Referrals: PCP Follow-up - 2-3 Days New Medications: Epinephrine Inj (Epipen 2-Hoang Inj) 0.3 Mg/0.3 Ml Pfpen 0.3 MG SQ ONCE PRN for ALLERGIC REACTION, #1 PACK 0 Refills Prednisone (21) 10 mg tab Dose Pack (Prednisone (21) 10 mg tab Dose Pack) 10 Mg Pack 10 MG PO DIRECTED for Inflammation, #1 DSPK 0 Refills Continued Medications: Albuterol 18 GM Inh (Ventolin Hfa 18 GM Inh) 90 Mcg/Act Aer 2 PUFF INH Q6H PRN for SHORTNESS OF BREATH, #1 INHALER 0 Refills Alprazolam (Xanax) 1 Mg Tab 1 MG PO Q8H PRN for ANXIETY, #10 TAB 0 Refills (This prescription has been renewed) Budesonide-Formoterol Inh (Symbicort Inh) 80-4.5 Mcg/Act Aero 2 PUFF INH Q12HR for Asthma Management, #1 INHALER 0 Refills (This prescription has been renewed) Bupropion HCl (Bupropion HCl) 75 Mg Tab 75 MG PO BID for Control Depression, TAB 0 Refills Carvedilol (Carvedilol) 6.25 Mg Tab 6.25 MG PO BID, #60 TAB 0 Refills Cyclobenzaprine (Flexeril) 7.5 Mg Tab 7.5 MG PO TID for Muscle Spasm, #90 TAB 0 Refills Cyclobenzaprine (Flexeril) 7.5 Mg Tab 7.5 MG PO TID PRN for MUSCLE SPASM, #90 TAB [address] (Cymbalta DR) 60 Mg Capdr 60 MG PO BID, #30 CAP 0 Refills Finasteride (Finasteride) 5 Mg Tab 5 MG PO DAILY for Manage Prostate Problems, #30 TAB 0 Refills Do not crush. Furosemide (Furosemide) 20 Mg Tab 20 MG PO BID, #60 TAB 0 Refills Ipratropium-Albuterol Neb (Duoneb) 0.5-2.5 Mg/3 Ml Neb 1 NEBULE INH Q6HR NEB for Breathing Treatment, #120 NEBULE 0 Refills (This prescription has been renewed) Losartan (Losartan) 25 Mg Tab 25 MG PO DAILY for Blood Pressure Management, #30 TAB 0 Refills Omeprazole (Omeprazole) 40 Mg Cap 40 MG PO DAILY, #30 CAP 0 Refills Oxycodone ER (Oxycontin) 10 Mg Tab 10 MG PO Q8HR for Pain Management, TAB 0 Refills Theophylline ER 12 HR (Theophylline ER 12 HR) 300 Mg Tab 600 MG PO DAILY, #60 TAB 0 Refills Theophylline ER 12 HR (Theophylline ER 12 HR) 300 Mg Tab 300 MG PO HS, #60 TAB 0 Refills Tiotropium Inh (Spiriva Handihaler) 18 Mcg Cap 18 MCG INH DAILY for COPD, #30 CAP 0 Refills (This prescription has been renewed ) 1 capsule = 18 mcg Triamterene-Hydrochlorothiazide (Triamterene-Hydrochlorothiazide) 37.5-25 Mg Cap 1 CAP PO DAILY, #30 CAP 0 Refills Colette Ramos MD Jun 04, 2017 13:55
[2017-06-04] MEDS ORDERED: EPIP0.3I SQ (13:59)
[2017-06-04] MEDS ORDERED: guaiFENesin E.R. 600 MG TAB PO SCH (21:00)
== END 2017-06-04 14:54 | disposition home or self-care (01) | DRG 192 ==
LOC: PHED 18:12 → PHEDA 19:44 → PH3B 20:55
PROVIDERS: ADMIT Hospitalist; ATTEND Hospitalist
DX: J44.1 Chronic obstructive pulmonary disease with (acute) exacerbation (principal); Z99.81 Dependence on supplemental oxygen; I10 Essential (primary) hypertension; E11.9 Type 2 diabetes mellitus without complications; E87.6 Hypokalemia; G89.29 Other chronic pain; M54.9 Dorsalgia, unspecified; E78.5 Hyperlipidemia, unspecified; R09.02 Hypoxemia; Z88.0 Allergy status to penicillin; Z88.5 Allergy status to narcotic agent
CPT/HCPCS: 36600; 71010; 80048; 80053; 81001; 82805; 82948; 83735; 83880; 84703; 85025; 85610; 85730; 87040; 87804; 93005; 94640; 94664; 96365; 96375; J1650; J1815; J1885; J1956; J2920; J3475; J7030